=== PATIENT | female | born 1955 | race Caucasian/White ===

== ENCOUNTER 2018-10-22 16:49 | Emergency (ER) | payer BC ==
[2018-10-22] MEDS ORDERED: Sodium Chloride 0.9% 1000 ML 1,000 ML IV STA (17:09)
[2018-10-22] MEDS ORDERED: Zofran 4 MG/2 ML VIAL IV ONE (17:09)
[2018-10-22] MEDS ORDERED: ANTIVERT 25 MG PO ONE (17:09)
[2018-10-22] MEDS ORDERED: Sodium Chloride 0.9% 1000 ML 1,000 ML ONE (17:13)
[2018-10-22] MEDS ORDERED: ANTIVERT 25 MG ONE ×2 (17:13→17:28)
[2018-10-22] MEDS ORDERED: Zofran 4 MG/2 ML VIAL ONE (17:13)
[2018-10-22 17:17] LABS: BASOPHIL % 0.3 % (0.0-0.4); Basophil (Absolute #) 0.03 (0-0.4); Eosinophil % 1.3 % (0.00-5.0); Eosinophil (Absolute #) 0.15 (0-0.5); Granulocyte Absolute (ANC) 8.03 (1.4-6.9); Granulocytes % 68.4 % (36.0-66.0); Hematocrit 36.4 % (35-47); Hemoglobin 13.1 gm/dl (12.0-16.0); Lymphocyte (Absolute #) 2.88 (1.0-4.6); Lymphocytes % 24.5 % (24.0-44.0); Mean Cell Volume 94.5 fl (78-100); Mean Platelet Volume 10.2 fl (6-9.5); Monocyte (Absolute #) 0.65 (0.0-1.3); Monocytes % 5.5 % (0.0-12.0); Platelet Count 289 K/mm3 (150-450); Red Blood Count 3.85 M/mm3 (4.1-5.4); Red Cell Distribution Width 12.7 % (11.5-14.0); White Blood Count 11.7 K/mm3 (4.0-10.5)
[2018-10-22 17:22] LABS: ANION GAP 11.5 MEQ/L (5-15); BLOOD UREA NITROGEN 17 mg/dL (7-17); CHLORIDE 102 mmol/L (98-107); Calcium 9.5 mg/dL (8.4-10.2); Carbon Dioxide 28 mmol/L (22-30); Glucose 96 mg/dL (74-106); Potassium 3.8 mmol/L (3.5-5.1); SODIUM 138 mmol/L (137-145)
[2018-10-22] MEDS ORDERED: Transderm Scop 1.5MG Patch TOP ONE (17:51)
--- NOTE | 2018-10-22 18:16 | ERPHSYRPT ---
- History of Present Illness Source: patient Exam Limitations: no limitations Patient Subjective Stated Complaint: WOKE UP THIS AFTERNOON WITH DIZZINESS AND VOMITING. HAVING EPIGASTRIC PAIN Triage Nursing Assessment: TO ROOM PER W/C. SKIN W/D, COLOR NORMAL, RESP EASY. PATIENT COVERING EYES STATING SHE IS VERY DIZZY. Timing/Duration: today Severity: moderate Character of Deficits: none Deficits: no difficulties Baseline/Normal Cognition: alert oriented x 3 Current Cognition: alert oriented x 3 Baseline Gait: walks w/o assistance Associated Symptoms: nausea, vomiting, other (Vertigo) Hx Tetanus, Diphtheria Vaccination/Date Given: No Hx Influenza Vaccination/Date Given: Yes Hx Pneumococcal Vaccination/Date Given: No <PRITI MEI - Last Filed: 10/22/18 19:22> <STEPHEN UMANA - Last Filed: 10/22/18 19:38> - History of Present Illness Physician History: Pt is a 63 y/o female that presented to the ED with dizziness. Pt went for a nap this afternoon, and when she woke up, she was very dizzy and started vomiting. She was not able to keep her eyes open, secondary to the dizziness. Pt denies any injury. No LOC. No dysuria, frequency or urgency. No SOB or cough. No sick contacts. She did have some colitis on and off the last couple of weeks. (PRITI MEI) Allergies/Adverse Reactions: No Known Drug Allergies Allergy (Unverified 10/22/18 17:01) Home Medications: Candesartan/Hydrochlorothiazid [Candesartan-Hctz 16-12.5 mg Tb] 1 ea PO DAILY [History] Estrogens,Conjugated [Premarin] 0.625 mg PO DAILY 10/22/18 [History] Levothyroxine Sodium 75 mcg PO DAILY 10/22/18 [History] - Review of Systems Constitutional: No Fever, No Chills Eyes: No Symptoms Ears, Nose, & Throat: No Symptoms Respiratory: No Cough, No Dyspnea Cardiac: No Chest Pain, No Edema, No Syncope Abdominal/Gastrointestinal: No Abdominal Pain, No Nausea, No Vomiting, No Diarrhea Genitourinary Symptoms: No Dysuria Musculoskeletal: No Back Pain, No Neck Pain Neurological: Dizziness (and vertigo), Vertigo <PRITI MEI - Last Filed: 07/16/19 19:22> - Past Medical History Pertinent Past Medical History: Yes Cardiac History: Hypertension Endocrine Medical History: Hypothyroidism - Past Surgical History Past Surgical History: Yes Female Surgical History: Hysterectomy - Social History Smoking Status: Never smoker Exposure to second hand smoke: No Drug Use: none Patient Lives Alone: No - Female History Hx Now: No <PRITI EMI Filed: 10/22/18 19:22> - Bert Coma Scale Best Eye Response (Bert): (4) open spontaneously Best Verbal Response ([place]): (5) oriented Best Motor Response (Bert): (6) obeys commands Bert Total: 15 - Physical Exam General Appearance: no apparent distress, alert Eye Exam: bilateral eye: PERRL, EOMI Ears, Nose, Throat Exam: normal ENT inspection, moist mucous membranes Neck Exam: normal inspection, non-tender, supple Respiratory: normal breath sounds, lungs clear, airway intact, No respiratory distress Cardiovascular: regular rate/rhythm, No edema Gastrointestinal: soft, No tenderness, No distention Back Exam: normal inspection Extremity Exam: normal inspection, No pedal edema 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, 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: normal hearing, normal speech, PERRL Coordination/Gait: normal finger to nose, normal gait, normal cerebellar function Motor/Sensory: no motor deficit, no sensory deficit SpO2 Interpretation: normal SpO2: 99 O2 Delivery: Room Air <MIN MEINA Sharon Olivas Filed: 10/22/18 19:22> - Nursing Vital Signs Nursing Vital Signs: Initial Vital Signs Temperature 97.6 F 10/22/18 16:50 Pulse Rate 68 10/22/18 16:50 Respiratory Rate 18 10/22/18 16:50 Blood Pressure 144/80 10/22/18 16:50 O2 Sat by Pulse Oximetry 100 10/22/18 16:50 Pain Scale Pain Intensity 0 - Course EKG Interpreted by Me: RATE (66 bpm), Sinus Rhythm, NORMAL QRS, NORMAL ST-T - CT Exams Head CT Interpretation: Negative (No acute abnormalities) <GABRIELAPRITI Filed: 10/22/18 19:22> Ordered Tests: Active Orders 24 hr Category Date Time Status HEAD WITHOUT CONTRAST [CT] Stat Exams 10/22/18 17:10 Taken BMP Stat Lab 10/22/18 17:10 Completed CBC W DIFF Stat Lab 10/22/18 17:10 Completed Lactic Acid Stat Lab 10/22/18 17:34 Completed TROPONIN Q3H Lab 10/22/18 17:10 Completed TROPONIN Q3H Lab 10/22/18 20:15 Ordered TROPONIN Q3H Lab 10/22/18 23:15 Ordered TROPONIN Q3H Lab 10/23/18 02:15 Ordered TROPONIN Q3H Lab 10/23/18 05:15 Ordered UA W/RFX UR CULTURE Stat Lab 10/22/18 18:10 Completed Medication Summary Discontinued Medications Generic Name Dose Route Start Last Admin Trade Name Freq PRN Reason Stop Dose Admin Sodium Chloride 1,000 mls @ 999 mls/hr 10/22/18 17:09 10/22/18 17:27 Sodium Chloride 0.9% 1000 Ml IV 10/22/18 18:09 999 mls/hr .Q1H1M STA Administration Sodium Chloride Confirm 10/22/18 17:13 Sodium Chloride 0.9% 1000 Ml Administered 10/22/18 17:14 Dose 1,000 mls @ ud .ROUTE .STK-MED ONE Meclizine HCl 50 mg 10/22/18 17:09 10/22/18 17:27 Antivert 25 Mg PO 10/22/18 17:10 50 mg STAT ONE Administration Meclizine HCl Confirm 10/22/18 17:13 Antivert 25 Mg Administered 10/22/18 17:14 Dose 25 mg .ROUTE .STK-MED ONE Meclizine HCl Confirm 10/22/18 17:28 Antivert 25 Mg Administered 10/22/18 17:29 Dose 25 mg .ROUTE .STK-MED ONE Ondansetron HCl 4 mg 10/22/18 17:09 10/22/18 17:22 Zofran 4 Mg/2 Ml Vial IV 10/22/18 17:10 4 mg STAT ONE Administration Ondansetron HCl Confirm 10/22/18 17:13 Zofran 4 Mg/2 Ml Vial Administered 10/22/18 17:14 Dose 4 mg .ROUTE .STK-MED ONE Scopolamine HBr 1.5 mg 10/22/18 17:51 10/22/18 18:09 Transderm Scop 1.5mg Patch TOP 10/22/18 17:52 1.5 mg STAT ONE Administration Lab/Rad Data: Laboratory Result Diagrams 10/22/18 17:10 10/22/18 17:10 Laboratory Results 10/22/18 10/22/18 10/22/18 Range/Units 18:10 17:34 17:10 WBC (4.0-10.5) K/mm3 RBC (4.1-5.4) M/mm3 Hgb (12.0-16.0) gm/dl Hct (35-47) % MCV (78-100) fl MCH (26-32) pg MCHC (32-36) g/dl RDW (11.5-14.0) % Plt Count (150-450) K/mm3 MPV (6-9.5) fl Gran % (36.0-66.0) % Eos # (Auto) (0-0.5) Absolute Lymphs (auto) (1.0-4.6) Absolute Monos (auto) (0.0-1.3) Lymphocytes % (24.0-44.0) % Monocytes % (0.0-12.0) % Eosinophils % (0.00-5.0) % Basophils % (0.0-0.4) % Absolute Granulocytes (1.4-6.9) Basophils # (0-0.4) Sodium (137-145) mmol/L Potassium (3.5-5.1) mmol/L Chloride (98-107) mmol/L Carbon Dioxide (22-30) mmol/L Anion Gap (5-15) MEQ/L BUN (7-17) mg/dL Creatinine (0.52-1.04) mg/dL Estimated GFR ML/MIN Glucose (74-106) mg/dL Lactic Acid 1.8 (0.4-2.0) Calcium (8.4-10.2) mg/dL Troponin I < 0.012 (0.000-0.034) ng/mL Urine Color YELLOW (YELLOW) Urine Appearance SLIGHTLY CLOUDY (CLEAR) Urine pH 6.0 (5-6) Ur Specific [place] 1.023 (1.005-1.025) Urine Protein NEGATIVE (Negative) Urine Ketones NEGATIVE (NEGATIVE) Urine Blood NEGATIVE (0-5) Elliott/ul Urine Nitrite NEGATIVE (NEGATIVE) Urine Bilirubin NEGATIVE (NEGATIVE) Urine Urobilinogen NEGATIVE (0-1) mg/dL Ur Leukocyte Esterase NEGATIVE (NEGATIVE) Urine WBC (Auto) 0-2 (0-5) /HPF Urine RBC (Auto) 0-2 (0-2) /HPF U Epithel Cells (Auto) RARE (FEW) /HPF Urine Bacteria (Auto) NONE SEEN (NEGATIVE) /HPF Other Casts (Auto) NEGATIVE (NEGATIVE) /LPF Urine Mucus (Auto) SLIGHT (NEGATIVE) /HPF Urine Culture Reflexed NO (NO) Urine Glucose NEGATIVE (NEGATIVE) mg/dL 10/22/18 10/22/18 Range/Units 17:10 17:10 WBC 11.7 H (4.0-10.5) K/mm3 RBC 3.85 L (4.1-5.4) M/mm3 Hgb 13.1 (12.0-16.0) gm/dl Hct 36.4 (35-47) % MCV 94.5 (78-100) fl MCH 34.0 H (26-32) pg MCHC 36.0 (32-36) g/dl RDW 12.7 (11.5-14.0) % Plt Count 289 (150-450) K/mm3 MPV 10.2 H (6-9.5) fl Gran % 68.4 H (36.0-66.0) % Eos # (Auto) 0.15 (0-0.5) Absolute Lymphs (auto) 2.88 (1.0-4.6) Absolute Monos (auto) 0.65 (0.0-1.3) Lymphocytes % 24.5 (24.0-44.0) % Monocytes % 5.5 (0.0-12.0) % Eosinophils % 1.3 (0.00-5.0) % Basophils % 0.3 (0.0-0.4) % Absolute Granulocytes 8.03 H (1.4-6.9) Basophils # 0.03 (0-0.4) Sodium 138 (137-145) mmol/L Potassium 3.8 (3.5-5.1) mmol/L Chloride 102 (98-107) mmol/L Carbon Dioxide 28 (22-30) mmol/L Anion Gap 11.5 (5-15) MEQ/L BUN 17 (7-17) mg/dL Creatinine 0.70 (0.52-1.04) mg/dL Estimated GFR > 60.0 ML/MIN Glucose 96 (74-106) mg/dL Lactic Acid (0.4-2.0) Calcium 9.5 (8.4-10.2) mg/dL Troponin I (0.000-0.034) ng/mL Urine Color (YELLOW) Urine Appearance (CLEAR) Urine pH (5-6) Ur Specific [place] (1.005-1.025) Urine Protein (Negative) Urine Ketones (NEGATIVE) Urine Blood (0-5) Elliott/ul Urine Nitrite (NEGATIVE) Urine Bilirubin (NEGATIVE) Urine Urobilinogen (0-1) mg/dL Ur Leukocyte Esterase (NEGATIVE) Urine WBC (Auto) (0-5) /HPF Urine RBC (Auto) (0-2) /HPF U Epithel Cells (Auto) (FEW) /HPF Urine Bacteria (Auto) (NEGATIVE) /HPF Other Casts (Auto) (NEGATIVE) /LPF Urine Mucus (Auto) (NEGATIVE) /HPF Urine Culture Reflexed (NO) Urine Glucose (NEGATIVE) mg/dL - Progress Progress: improved Discussed with .: Kali Hernandez Will see patient in: office Counseled pt/family regarding: need for follow-up <PRITI MEI - Last Filed: 10/22/18 19:22> - Progress Progress Note: 10/22/18 18:17 Pt was seen and examined. She still has some nausea, and is keeping her eyes close. EKG is normal, and CT of head and labs are normal. UA is pending. Zofran, Scopolamine patch and IVF were ordered. Meclizine 50mg PO once was ordered. 10/22/18 19:22 Patient initialy seen by Dr Mei, patient with complaint of vertigo since 2 :[address] pm[address] woke this way after a nap Patient sates now feeling better patient with normal neuological exam. eyes perrla, eomi funormal ekfg alert, oriented x 3 , speech normal, normal finger to nose, no pronator drift no facial droop, legal job titles equal 5/5, gcs= 15. full rom all extremities, sensation intact all extremities, head ct wnl heart rrr without murmer, cbc essentially normal chemistry normal ekg nsr [address] or t wave changes, normal ekg, head ct no acute intracranial changes. orthostatic vital signs wnl. Patient ambulating well. impression 1 benigh positional vertigo2. dizzyness, plan asa 162 mg orally, plenty of fluids, home on meclizine, follow up with Dr Bobby. (PRITI MEI) - Departure Departure Disposition: Home <PRITI MEI - Last Filed: 10/22/18 19:22> - Departure Departure Disposition: Home Critical Care Time: No <STEPHEN UMANA - Last Filed: 10/22/18 19:38> - Departure Clinical Impression: Vertigo, Dizziness Condition: Fair Referrals: KENZIE HERNANDEZ [Primary Care Provider] - Additional Instructions: Return home, plenty of fluids. meclizine as prescribed. Follow up with Dr Bobby. Return for acute distress or for any problem. Prescriptions: Meclizine HCl 25 mg [Antivert 25 mg] 25 mg PO TID PRN #20 tablet
[2018-10-22 18:22] LABS: Appearance SLIGHTLY CLOUDY (CLEAR); Bilirubin NEGATIVE (NEGATIVE); Blood NEGATIVE Ery/ul (0-5); Epithelial Cells RARE /HPF (FEW); Glucose NEGATIVE (NEGATIVE); Ketones NEGATIVE (NEGATIVE); Leukocyte Esterase NEGATIVE (NEGATIVE); Mucus SLIGHT /HPF (NEGATIVE); Nitrite NEGATIVE (NEGATIVE); Protein,Urine Dip NEGATIVE (Negative); RBC 0-2 /HPF (0-2); Specific Gravity 1.023 (1.005-1.025); Urobilinogen NEGATIVE mg/dL (0-1); WBC 0-2 /HPF (0-5)
[2018-10-22 18:23] LABS: Bacteria NONE SEEN /HPF (NEGATIVE)
[2018-10-22] MEDS ORDERED: BABY ASPIRIN 81 MG CHEW ONE (19:33)
[2018-10-22] MEDS ORDERED: BABY ASPIRIN 81 MG CHEW PO ONE (19:41)
[2018-10-22 19:49] VITALS: BP 119/72; PULSE 88; O2SAT 97
--- NOTE | 2018-10-23 08:38 | XRAY ---
Indication: Nausea and dizziness. Multiple contiguous axial images obtained through the head without contrast. Comparison: July 04, 2016. Again normal appearing brain parenchyma, ventricles, and bony calvarium. Visualized paranasal sinuses and mastoid air cells are clear. Impression: Normal CT head without contrast exam. CT DI 70.62
== END 2018-10-22 19:52 | disposition home or self-care (01) ==
LOC: ED 16:49
DX: H81.10 Benign paroxysmal vertigo, unspecified ear (principal); R42 Dizziness and giddiness; E03.9 Hypothyroidism, unspecified; Z79.899 Other long term (current) drug therapy
CPT/HCPCS: 36000; 36415; 70450; 80048; 81001; 83605; 84484; 85025; 96360; 96374; 99284; J2405; A9270-GY

== ENCOUNTER 2019-01-13 13:53 | Emergency (ER) | payer BC ==
--- NOTE | 2019-01-13 13:55 | ERPHSYRPT ---
- History of Present Illness Time Seen by Provider: 01/13/19 13:55 Source: patient Exam Limitations: no limitations Physician History: 63 y/o white female with 2 month h/o dizziness and worsening left hearing loss. pt has seen an ENT and a neurologist for this. 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 pt does not know the results. in the last several days pt has noticed a variety of sx including cp that has resolved, nausea without vomiting, mild dizziness, and weakness. pt was diagnosed with superficial siderosis(recurrent subarachnoid hemorrhages) Timing/Duration: day(s) (several days), intermittent Severity: mild Character of Deficits: other (loss of balance more than vertigo ) Deficits: off balance Baseline/Normal Cognition: alert oriented x 3 Current Cognition: alert oriented x 3 Baseline Gait: walks w/o assistance Associated Symptoms: nausea, weakness, chest pain (last week), No vomiting Allergies/Adverse Reactions: No Known Drug Allergies Allergy (Unverified 10/22/18 17:01) Home Medications: Candesartan/Hydrochlorothiazid [Candesartan-Hctz 16-12.5 mg Tb] 1 ea PO DAILY [History] Estrogens,Conjugated [Premarin] 0.625 mg PO DAILY 10/22/18 [History] Levothyroxine Sodium 75 mcg PO DAILY 10/22/18 [History] Hx Tetanus, Diphtheria Vaccination/Date Given: No Hx Influenza Vaccination/Date Given: Yes Hx Pneumococcal Vaccination/Date Given: No - Review of Systems Constitutional: Weakness Eyes: No Symptoms Ears, Nose, & Throat: No Symptoms Respiratory: No Symptoms Cardiac: Chest Pain (last week) Abdominal/Gastrointestinal: Nausea Genitourinary Symptoms: No Symptoms Musculoskeletal: No Symptoms Skin: No Symptoms Neurological: Dizziness Psychological: No Symptoms Endocrine: No Symptoms Hematologic/Lymphatic: No Symptoms Immunological/Allergic: No Symptoms All Other Systems: Reviewed and Negative - Past Medical History Pertinent Past Medical History: Yes Neurological History: No Pertinent History ENT History: No Pertinent History Cardiac History: Hypertension Respiratory History: No Pertinent History Endocrine Medical History: Hypothyroidism Musculoskeletal History: No Pertinent History GI Medical History: No Pertinent History History: No Pertinent History Psycho-Social History: No Pertinent History Female Reproductive Disorders: No Pertinent History - Past Surgical History Past Surgical History: Yes Neuro Surgical History: No Pertinent History Cardiac: No Pertinent History Respiratory: No Pertinent History Gastrointestinal: No Pertinent History Genitourinary: No Pertinent History Musculoskeletal: No Pertinent History Female Surgical History: Hysterectomy - Social History Smoking Status: Never smoker Exposure to second hand smoke: No Drug Use: none Patient Lives Alone: No - Nursing Vital Signs Nursing Vital Signs: Initial Vital Signs Temperature 98.3 F 01/13/19 14:14 Pulse Rate 72 01/13/19 14:14 Respiratory Rate 18 01/13/19 14:14 Blood Pressure 131/71 01/13/19 14:14 O2 Sat by Pulse Oximetry 100 01/13/19 14:14 Pain Scale Pain Intensity 0 - [place] Coma Scale Best Eye Response ([place]): (4) open spontaneously Best Verbal Response (Bert): (5) oriented Best Motor Response (Bert): (6) obeys commands Bert Total: 15 - Physical Exam General Appearance: no apparent distress, alert, anxiety Eye Exam: bilateral eye: normal inspection, PERRL, EOMI Ears, Nose, Throat Exam: normal ENT inspection, TMs normal, pharynx normal, moist mucous membranes Neck Exam: normal inspection, non-tender, supple, full range of motion Respiratory: normal breath sounds, lungs clear, airway intact, No chest tenderness, No respiratory distress Cardiovascular: regular rate/rhythm, normal heart sounds, normal peripheral pulses Gastrointestinal: soft, normal bowel sounds, No tenderness Pelvic Exam: not done Rectal Exam: not done Back Exam: normal inspection, normal range of motion, No CVA tenderness, No vertebral tenderness Extremity Exam: normal inspection, normal range of motion, pelvis stable 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, oriented x 3, 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 Exam: normal speech, PERRL, hearing deficit (L) (chronic and worsening) Coordination/Gait: normal finger to nose, normal gait, normal cerebellar function Motor/Sensory: no motor deficit, no sensory deficit, no pronator drift Skin Exam: normal color, warm, dry SpO2 Interpretation: normal O2 Delivery: Room Air - Course Nursing assessment & vital signs reviewed: Yes EKG Interpreted by Me: RATE (68), Sinus Rhythm, NORMAL AXIS, NORMAL INTERVALS, NORMAL QRS, Other (comparison ekg 10/22/18 no changes) Ordered Tests: Active Orders 24 hr Category Date Time Status EKG-ER Only STAT Care 01/13/19 14:59 Active IV Insertion STAT Care 01/13/19 14:59 Active CBC W DIFF Stat Lab 01/13/19 15:10 Completed CMP Stat Lab 01/13/19 15:10 Completed TROPONIN Q3H Lab 01/13/19 15:10 Completed TROPONIN Q3H Lab 01/13/19 18:00 Ordered TROPONIN Q3H Lab 01/13/19 21:00 Ordered TROPONIN Q3H Lab 01/14/19 00:00 Ordered TROPONIN Q3H Lab 01/14/19 03:00 Ordered UA W/RFX UR CULTURE Stat Lab 01/13/19 15:00 Completed Medication Summary Discontinued Medications Generic Name Dose Route Start Last Admin Trade Name Frejenny PRN Reason Stop Dose Admin Sodium Chloride 1,000 mls @ 999 mls/hr 01/13/19 14:59 01/13/19 16:30 Sodium Chloride 0.9% 1000 Ml IV 01/13/19 15:59 Infused .Q1H1M STA Infusion Sodium Chloride Confirm 01/13/19 15:18 Sodium Chloride 0.9% 1000 Ml Administered 01/13/19 15:19 Dose 1,000 mls @ ud .ROUTE .STK-MED ONE Promethazine HCl 12.5 mg 01/13/19 14:59 01/13/19 15:19 Phenergan 25 Mg Inj IM 01/13/19 15:00 12.5 mg STAT ONE Administration Promethazine HCl Confirm 01/13/19 15:18 Phenergan 25 Mg Inj Administered 01/13/19 15:19 Dose 25 mg .ROUTE .STK-MED ONE Lab/Rad Data: Laboratory Result Diagrams 01/13/19 15:10 01/13/19 15:10 Laboratory Results 01/13/19 01/13/19 01/13/19 Range/Units 15:10 15:10 15:10 WBC 12.3 H (4.0-10.5) K/mm3 RBC 4.02 L (4.1-5.4) M/mm3 Hgb 13.0 (12.0-16.0) gm/dl Hct 38.0 (35-47) % MCV 94.5 (78-100) fl MCH 32.3 H (26-32) pg MCHC 34.2 (32-36) g/dl RDW 12.4 (11.5-14.0) % Plt Count 314 (150-450) K/mm3 MPV 9.8 H (6-9.5) fl Gran % 77.4 H (36.0-66.0) % Eos # (Auto) 0.06 (0-0.5) Absolute Lymphs (auto) 2.12 (1.0-4.6) Absolute Monos (auto) 0.58 (0.0-1.3) Lymphocytes % 17.2 L (24.0-44.0) % Monocytes % 4.7 (0.0-12.0) % Eosinophils % 0.5 (0.00-5.0) % Basophils % 0.2 (0.0-0.4) % Absolute Granulocytes 9.53 H (1.4-6.9) Basophils # 0.03 (0-0.4) Sodium 140 (137-145) mmol/L Potassium 3.5 (3.5-5.1) mmol/L Chloride 102 (98-107) mmol/L Carbon Dioxide 29 (22-30) mmol/L Anion Gap 13.2 (5-15) MEQ/L BUN 17 (7-17) mg/dL Creatinine 0.78 (0.52-1.04) mg/dL Estimated GFR > 60.0 ML/MIN Glucose 93 (74-106) mg/dL Calcium 9.6 (8.4-10.2) mg/dL Total Bilirubin 0.20 (0.2-1.3) mg/dL AST 26 (14-36) U/L ALT 20 (0-35) U/L Alkaline Phosphatase 65 (38-126) U/L Troponin I < 0.012 (0.000-0.034) ng/mL Serum Total Protein 7.8 (6.3-8.2) g/dL Albumin 4.1 (3.5-5.0) g/dL Urine Color (YELLOW) Urine Appearance (CLEAR) Urine pH (5-6) Ur Specific [place] (1.005-1.025) Urine Protein (Negative) Urine Ketones (NEGATIVE) Urine Blood (0-5) Elliott/ul Urine Nitrite (NEGATIVE) Urine Bilirubin (NEGATIVE) Urine Urobilinogen (0-1) mg/dL Ur Leukocyte Esterase (NEGATIVE) Urine WBC (Auto) (0-5) /HPF Urine RBC (Auto) (0-2) /HPF U Epithel Cells (Auto) (FEW) /HPF Urine Bacteria (Auto) (NEGATIVE) /HPF Urine Mucus (Auto) (NEGATIVE) /HPF Urine Culture Reflexed (NO) Urine Glucose (NEGATIVE) mg/dL 01/13/19 Range/Units 15:00 WBC (4.0-10.5) K/mm3 RBC (4.1-5.4) M/mm3 Hgb (12.0-16.0) gm/dl Hct (35-47) % MCV (78-100) fl MCH (26-32) pg MCHC (32-36) g/dl RDW (11.5-14.0) % Plt Count (150-450) K/mm3 MPV (6-9.5) fl Gran % (36.0-66.0) % Eos # (Auto) (0-0.5) Absolute Lymphs (auto) (1.0-4.6) Absolute Monos (auto) (0.0-1.3) Lymphocytes % (24.0-44.0) % Monocytes % (0.0-12.0) % Eosinophils % (0.00-5.0) % Basophils % (0.0-0.4) % Absolute Granulocytes (1.4-6.9) Basophils # (0-0.4) Sodium (137-145) mmol/L Potassium (3.5-5.1) mmol/L Chloride (98-107) mmol/L Carbon Dioxide (22-30) mmol/L Anion Gap (5-15) MEQ/L BUN (7-17) mg/dL Creatinine (0.52-1.04) mg/dL Estimated GFR ML/MIN Glucose (74-106) mg/dL Calcium (8.4-10.2) mg/dL Total Bilirubin (0.2-1.3) mg/dL AST (14-36) U/L ALT (0-35) U/L Alkaline Phosphatase (38-126) U/L Troponin I (0.000-0.034) ng/mL Serum Total Protein (6.3-8.2) g/dL Albumin (3.5-5.0) g/dL Urine Color YELLOW (YELLOW) Urine Appearance CLEAR (CLEAR) Urine pH 5.0 (5-6) Ur Specific [place] 1.017 (1.005-1.025) Urine Protein NEGATIVE (Negative) Urine Ketones NEGATIVE (NEGATIVE) Urine Blood SMALL (0-5) Elliott/ul Urine Nitrite NEGATIVE (NEGATIVE) Urine Bilirubin NEGATIVE (NEGATIVE) Urine Urobilinogen NEGATIVE (0-1) mg/dL Ur Leukocyte Esterase NEGATIVE (NEGATIVE) Urine WBC (Auto) NONE (0-5) /HPF Urine RBC (Auto) NONE (0-2) /HPF U Epithel Cells (Auto) RARE (FEW) /HPF Urine Bacteria (Auto) NONE (NEGATIVE) /HPF Urine Mucus (Auto) SLIGHT (NEGATIVE) /HPF Urine Culture Reflexed NO (NO) Urine Glucose NEGATIVE (NEGATIVE) mg/dL - Progress Progress: improved Progress Note: 01/13/19 17:16 spoke with pt and spouse. we opted not to perform a ct head. pt underwent two brain mris 3 days ago. they are awaiting results. Counseled pt/family regarding: lab results, diagnosis, need for follow-up - Departure Departure Disposition: Home Clinical Impression: Ataxia, Dizziness Condition: Stable Critical Care Time: No Referrals: NEELAM CAMARILLO MD [Primary Care Provider] - Additional Instructions: call your neurologist tomorrow to obtain MRI results and for further instructions.
[2019-01-13] MEDS ORDERED: Phenergan 25 MG INJ ONE (15:18)
[2019-01-13] MEDS ORDERED: Sodium Chloride 0.9% 1000 ML 1,000 ML ONE (15:18)
[2019-01-13] MEDS: Sodium Chloride 0.9% 1000 ML 1,000 ML IV STA (15:19)
[2019-01-13] MEDS: Phenergan 25 MG INJ IM ONE (15:19)
[2019-01-13 15:22] LABS: Absolute Neutrophil Ct (ANC) 9.53 (1.4-6.9); BASOPHIL % 0.2 % (0.0-0.4); Basophil (Absolute #) 0.03 (0-0.4); Eosinophil % 0.5 % (0.00-5.0); Eosinophil (Absolute #) 0.06 (0-0.5); Lymphocyte (Absolute #) 2.12 (1.0-4.6); Lymphocytes % 17.2 % (24.0-44.0); Mean Cell Volume 94.5 fl (78-100); Mean Corpuscular Hemoglobin 32.3 pg (26-32); Mean Corpuscular Hgb Concent. 34.2 g/dl (32-36); Mean Platelet Volume 9.8 fl (6-9.5); Monocyte (Absolute #) 0.58 (0.0-1.3); Monocytes % 4.7 % (0.0-12.0); Neutrophil % 77.4 % (36.0-66.0); Platelet Count 314 K/mm3 (150-450); Red Blood Count 4.02 M/mm3 (4.1-5.4); Red Cell Distribution Width 12.4 % (11.5-14.0); White Blood Count 12.3 K/mm3 (4.0-10.5)
[2019-01-13 15:39] LABS: ALBUMIN 4.1 g/dL (3.5-5.0); ALKALINE PHOSPHATASE 65 U/L (38-126); ANION GAP 13.2 MEQ/L (5-15); BLOOD UREA NITROGEN 17 mg/dL (7-17); CHLORIDE 102 mmol/L (98-107); Calcium 9.6 mg/dL (8.4-10.2); Carbon Dioxide 29 mmol/L (22-30); Creatinine 1 0.78 mg/dL (0.52-1.04); Glucose 93 mg/dL (74-106); Potassium 3.5 mmol/L (3.5-5.1); SGOT/AST 26 U/L (14-36); SGPT/ALT 20 U/L (0-35); SODIUM 140 mmol/L (137-145); Total Protein 7.8 g/dL (6.3-8.2)
[2019-01-13 16:38] LABS: Appearance CLEAR (CLEAR); Bilirubin NEGATIVE (NEGATIVE); Blood SMALL Ery/ul (0-5); Epithelial Cells RARE /HPF (FEW); Glucose NEGATIVE (NEGATIVE); Ketones NEGATIVE (NEGATIVE); Leukocyte Esterase NEGATIVE (NEGATIVE); Mucus SLIGHT /HPF (NEGATIVE); Nitrite NEGATIVE (NEGATIVE); Protein,Urine Dip NEGATIVE (Negative); Specific Gravity 1.017 (1.005-1.025); Urobilinogen NEGATIVE mg/dL (0-1)
[2019-01-13 17:21] VITALS: BP 109/66
[2019-01-13 17:32] VITALS: PULSE 77; O2SAT 98
== END 2019-01-13 17:31 | disposition home or self-care (01) ==
LOC: ED 13:53
DX: R27.0 Ataxia, unspecified (principal); R42 Dizziness and giddiness
CPT/HCPCS: 36000; 36415; 80053; 81001; 84484; 85025; 93005; 96360; 96372; 99284; J2550

== ENCOUNTER 2020-04-19 10:04 | Observation (INO) | payer BC ==
--- NOTE | 2020-04-19 10:24 | ERPHSYRPT ---
- History of Present Illness Time Seen by Provider: 04/19/20 10:10 Source: patient Exam Limitations: no limitations Patient Subjective Stated Complaint: Pt states "Last weekend I started to have chest pain and shortness of breath and i have mitral valve prolaps and thought I was having a flair up so I held off coming to the ed, but it is just getting worse." Triage Nursing Assessment: Pt presented alert and oriented X 3, skin pwd. PT ambulates with an upright steady gait, able to speak in clear full sentences. Pt in no apparent respiratory distress. Physician History: Patient is a 64-year-old female presents to our ED as a referral from her primary care doctor for evaluation of chest pain and shortness of breath that has been progressive over the past week. Patient states she has a history of mitral valve prolapse. Chest pain described as an ache that is localized. No radiation. No associated nausea vomiting or diaphoresis. No fever no trauma. Patient denies Covid exposure. Symptoms are moderate in intensity. No specific worsening or improving factors. Patient voices no other complaints concerns at this time. Timing/Duration: week(s) Severity: moderate (A week ago) Modifying Factors: Improves With: nothing Associated Symptoms: denies symptoms Allergies/Adverse Reactions: No Known Drug Allergies Allergy (Verified 04/19/20 10:12) Home Medications: Candesartan/Hydrochlorothiazid [Candesartan-Hctz 16-12.5 mg Tb] 1 ea PO DAILY 10/22/18 [History] Estrogens,Conjugated [Premarin] 0.625 mg PO DAILY 10/22/18 [History] Levothyroxine Sodium 75 mcg PO DAILY 10/22/18 [History] Hx Tetanus, Diphtheria Vaccination/Date Given: No Hx Influenza Vaccination/Date Given: No Hx Pneumococcal Vaccination/Date Given: No Immunizations Up to Date: Yes Travel Risk - International Travel Have you traveled outside of the country in past 3 weeks: No - Coronavirus Screening Are you exhibiting any of the following symptoms?: No Close contact with a COVID-19 positive Pt in past 14-21 Days: No - Review of Systems Constitutional: No Symptoms, No Fever, No Chills Eyes: No Symptoms Ears, Nose, & Throat: No Symptoms Respiratory: No Symptoms, No Cough, No Dyspnea Cardiac: No Symptoms, No Chest Pain, No Edema, No Syncope Abdominal/Gastrointestinal: No Symptoms, No Abdominal Pain, No Nausea, No Vomiting, No Diarrhea Genitourinary Symptoms: No Symptoms, No Dysuria Musculoskeletal: No Symptoms, No Back Pain, No Neck Pain Skin: No Symptoms, No Rash Neurological: No Symptoms, No Dizziness, No Focal Weakness, No Sensory Changes Psychological: No Symptoms Endocrine: No Symptoms Hematologic/Lymphatic: No Symptoms Immunological/Allergic: No Symptoms All Other Systems: Reviewed and Negative - Past Medical History Pertinent Past Medical History: Yes Neurological History: No Pertinent History ENT History: No Pertinent History Cardiac History: Hypertension Respiratory History: No Pertinent History Endocrine Medical History: Hypothyroidism Musculoskeletal History: No Pertinent History GI Medical History: No Pertinent History History: No Pertinent History Psycho-Social History: No Pertinent History Female Reproductive Disorders: No Pertinent History Other Medical History: superficial siderosis - Past Surgical History Past Surgical History: Yes Neuro Surgical History: No Pertinent History Cardiac: No Pertinent History Respiratory: No Pertinent History Gastrointestinal: No Pertinent History Genitourinary: No Pertinent History Musculoskeletal: No Pertinent History Female Surgical History: Hysterectomy - Social History Smoking Status: Never smoker Exposure to second hand smoke: No Drug Use: none Patient Lives Alone: No - Nursing Vital Signs Nursing Vital Signs: Initial Vital Signs Temperature 98.2 F 04/19/20 10:04 Pulse Rate 80 04/19/20 10:04 Respiratory Rate 22 04/19/20 10:04 Blood Pressure 138/70 04/19/20 10:04 O2 Sat by Pulse Oximetry 98 04/19/20 10:04 Pain Scale Pain Intensity 1 - Physical Exam General Appearance: no apparent distress, alert Eye Exam: PERRL/EOMI, eyes nml inspection Ears, Nose, Throat Exam: normal ENT inspection, TMs normal, pharynx normal, moist mucous membranes Neck Exam: normal inspection, non-tender, supple, full range of motion Respiratory Exam: normal breath sounds, lungs clear, No respiratory distress Cardiovascular Exam: regular rate/rhythm, normal heart sounds, normal peripheral pulses Gastrointestinal/Abdomen Exam: soft, normal bowel sounds, No tenderness, No mass Back Exam: normal inspection, normal range of motion, No CVA tenderness, No vertebral tenderness Extremity Exam: normal inspection, normal range of motion, pelvis stable Neurologic Exam: alert, oriented x 3, cooperative, normal mood/affect, nml cerebellar function, nml station & gait, sensation nml, No motor deficits Skin Exam: normal color, warm, dry, No rash Lymphatic Exam: No adenopathy SpO2 Interpretation: normal SpO2: 98 O2 Delivery: Room Air - Course Nursing assessment & vital signs reviewed: Yes EKG Interpreted by Me: RATE (75), Sinus Rhythm, NORMAL AXIS, NORMAL INTERVALS - Radiology Exams Chest X-ray Interpretation: Interpreted by me, Teleradiologist Report (No acute findings. Normal bony thorax.) Ordered Tests: Active Orders 24 hr Category Date Time Status Collection Systems Foreman STAT Care 04/19/20 10:09 Active EKG-ER Only STAT Care 04/19/20 10:08 Active IV Insertion STAT Care 04/19/20 10:08 Active Pulse Oximetry (ED) STAT Care 04/19/20 10:08 Active CHEST 1 VIEW (PORTABLE) Stat Exams 04/19/20 10:09 Completed CBC W DIFF Stat Lab 04/19/20 10:15 Completed CMP Stat Lab 04/19/20 10:15 Completed MAGNESIUM Stat Lab 04/19/20 10:15 Completed NT PRO BNP Stat Lab 04/19/20 10:15 Completed TROPONIN Q3H Lab 04/19/20 10:15 Completed TROPONIN Q3H Lab 04/19/20 13:15 Ordered TROPONIN Q3H Lab 04/19/20 16:15 Ordered TROPONIN Q3H Lab 04/19/20 19:15 Ordered TROPONIN Q3H Lab 04/19/20 22:15 Ordered UA W/RFX UR CULTURE Stat Lab 04/19/20 11:27 Completed Transfer Order Routine Transfer 04/19/20 Ordered Medication Summary Discontinued Medications Generic Name Dose Route Start Last Admin Trade Name Freq PRN Reason Stop Dose Admin Aspirin 324 mg 04/19/20 12:52 04/19/20 12:58 Baby Aspirin 81 Mg Chew PO 04/19/20 12:53 324 mg STAT ONE Administration Aspirin Confirm 04/19/20 12:56 Baby Aspirin 81 Mg Chew Administered 04/19/20 12:57 Dose 324 mg .ROUTE .STK-MED ONE Nitroglycerin 1 gm 04/19/20 12:53 04/19/20 12:58 Nitro-Bid 2% Ud Packets TOP 04/19/20 12:54 1 gm STAT ONE Administration Nitroglycerin Confirm 04/19/20 12:56 Nitro-Bid 2% Ud Packets Administered 04/19/20 12:57 Dose 1 gm .ROUTE .STK-MED ONE Lab/Rad Data: Laboratory Result Diagrams 04/19/20 10:15 04/19/20 10:15 Laboratory Results 04/19/20 04/19/20 04/19/20 Range/Units 11:27 10:15 10:15 WBC (4.0-10.5) K/mm3 RBC (4.1-5.4) M/mm3 Hgb (12.0-16.0) gm/dl Hct (35-47) % MCV (78-100) fl MCH (26-32) pg MCHC (32-36) g/dl RDW (11.5-14.0) % Plt Count (150-450) K/mm3 MPV (7.5-11.0) fl Gran % (36.0-66.0) % Eos # (Auto) (0-0.5) Absolute Lymphs (auto) (1.0-4.6) Absolute Monos (auto) (0.0-1.3) Lymphocytes % (24.0-44.0) % Monocytes % (0.0-12.0) % Eosinophils % (0.00-5.0) % Basophils % (0.0-0.4) % Absolute Granulocytes (1.4-6.9) Basophils # (0-0.4) Sodium 135 L (137-145) mmol/L Potassium 3.8 (3.5-5.1) mmol/L Chloride 99 (98-107) mmol/L Carbon Dioxide 30 (22-30) mmol/L Anion Gap 9.7 (5-15) MEQ/L BUN 23 H (7-17) mg/dL Creatinine 0.81 (0.52-1.04) mg/dL Estimated GFR > 60.0 ML/MIN Glucose 96 (74-106) mg/dL Calcium 9.7 (8.4-10.2) mg/dL Magnesium 1.8 (1.6-2.3) mg/dL Total Bilirubin 0.40 (0.2-1.3) mg/dL AST 24 (14-36) U/L ALT 17 (0-35) U/L Alkaline Phosphatase 67 (38-126) U/L Troponin I < 0.012 (0.000-0.034) ng/mL NT-Pro-B Natriuret Pep 50.1 (0-900) pg/mL Serum Total Protein 7.7 (6.3-8.2) g/dL Albumin 4.1 (3.5-5.0) g/dL Urine Color YELLOW (YELLOW) Urine Appearance SLIGHTLY CLOUDY (CLEAR) Urine pH 6.0 (5-6) Ur Specific [place] 1.021 (1.005-1.025) Urine Protein NEGATIVE (Negative) Urine Ketones NEGATIVE (NEGATIVE) Urine Blood NEGATIVE (0-5) Elliott/ul Urine Nitrite NEGATIVE (NEGATIVE) Urine Bilirubin NEGATIVE (NEGATIVE) Urine Urobilinogen NEGATIVE (0-1) mg/dL Ur Leukocyte Esterase TRACE (NEGATIVE) Urine WBC (Auto) NONE (0-5) /HPF Urine RBC (Auto) NONE (0-2) /HPF U Epithel Cells (Auto) RARE (FEW) /HPF Urine Bacteria (Auto) NONE (NEGATIVE) /HPF Urine Mucus (Auto) SLIGHT (NEGATIVE) /HPF Urine Culture Reflexed NO (NO) Urine Glucose NEGATIVE (NEGATIVE) mg/dL 04/19/20 Range/Units 10:15 WBC 11.2 H (4.0-10.5) K/mm3 RBC 4.08 L (4.1-5.4) M/mm3 Hgb 13.1 (12.0-16.0) gm/dl Hct 38.8 (35-47) % MCV 95.1 (78-100) fl MCH 32.1 H (26-32) pg MCHC 33.8 (32-36) g/dl RDW 12.1 (11.5-14.0) % Plt Count 328 (150-450) K/mm3 MPV 9.7 (7.5-11.0) fl Gran % 69.4 H (36.0-66.0) % Eos # (Auto) 0.07 (0-0.5) Absolute Lymphs (auto) 2.91 (1.0-4.6) Absolute Monos (auto) 0.43 (0.0-1.3) Lymphocytes % 25.9 (24.0-44.0) % Monocytes % 3.8 (0.0-12.0) % Eosinophils % 0.6 (0.00-5.0) % Basophils % 0.3 (0.0-0.4) % Absolute Granulocytes 7.79 H (1.4-6.9) Basophils # 0.03 (0-0.4) Sodium (137-145) mmol/L Potassium (3.5-5.1) mmol/L Chloride (98-107) mmol/L Carbon Dioxide (22-30) mmol/L Anion Gap (5-15) MEQ/L BUN (7-17) mg/dL Creatinine (0.52-1.04) mg/dL Estimated GFR ML/MIN Glucose (74-106) mg/dL Calcium (8.4-10.2) mg/dL Magnesium (1.6-2.3) mg/dL Total Bilirubin (0.2-1.3) mg/dL AST (14-36) U/L ALT (0-35) U/L Alkaline Phosphatase (38-126) U/L Troponin I (0.000-0.034) ng/mL NT-Pro-B Natriuret Pep (0-900) pg/mL Serum Total Protein (6.3-8.2) g/dL Albumin (3.5-5.0) g/dL Urine Color (YELLOW) Urine Appearance (CLEAR) Urine pH (5-6) Ur Specific [place] (1.005-1.025) Urine Protein (Negative) Urine Ketones (NEGATIVE) Urine Blood (0-5) Elliott/ul Urine Nitrite (NEGATIVE) Urine Bilirubin (NEGATIVE) Urine Urobilinogen (0-1) mg/dL Ur Leukocyte Esterase (NEGATIVE) Urine WBC (Auto) (0-5) /HPF Urine RBC (Auto) (0-2) /HPF U Epithel Cells (Auto) (FEW) /HPF Urine Bacteria (Auto) (NEGATIVE) /HPF Urine Mucus (Auto) (NEGATIVE) /HPF Urine Culture Reflexed (NO) Urine Glucose (NEGATIVE) mg/dL - Progress Progress: improved Progress Note: Patient reassessed. No active chest pain at rest. Preliminary work-up negative. Case discussed with her primary care doctor. We will admit for cardi ac rule out. Aspirin administered. Nitro administered. Patient's last stress test was 5 or 6 years ago. Patient concerned with her chest pain as her mother recently had 2 heart attacks. Plan of care discussed with patient. She agrees to admission to [facility] for further evaluation and treatment. Patient denies Covid exposure. No Covid symptomology. We discussed Covid testing with administration. They feel that Covid testing is not necessary at this time and I do agree with this recommendation. 04/19/20 12:59 04/19/20 13:00 Discussed with : Rosa Will see patient in: hospital (observation) Counseled pt/family regarding: lab results, diagnosis - Departure Departure Disposition: Observation Clinical Impression: ACS (acute coronary syndrome) Condition: Stable Critical Care Time: No Referrals: NEELAM CAMARILLO MD [Primary Care Provider] -
[2020-04-19 10:29] LABS: Absolute Neutrophil Ct (ANC) 7.79 (1.4-6.9); BASOPHIL % 0.3 % (0.0-0.4); Basophil (Absolute #) 0.03 (0-0.4); Eosinophil % 0.6 % (0.00-5.0); Eosinophil (Absolute #) 0.07 (0-0.5); Hematocrit 38.8 % (35-47); Hemoglobin 13.1 gm/dl (12.0-16.0); Lymphocyte (Absolute #) 2.91 (1.0-4.6); Lymphocytes % 25.9 % (24.0-44.0); Mean Cell Volume 95.1 fl (78-100); Mean Corpuscular Hemoglobin 32.1 pg (26-32); Mean Corpuscular Hgb Concent. 33.8 g/dl (32-36); Mean Platelet Volume 9.7 fl (7.5-11.0); Monocyte (Absolute #) 0.43 (0.0-1.3); Monocytes % 3.8 % (0.0-12.0); Neutrophil % 69.4 % (36.0-66.0); Platelet Count 328 K/mm3 (150-450); Red Blood Count 4.08 M/mm3 (4.1-5.4); Red Cell Distribution Width 12.1 % (11.5-14.0); White Blood Count 11.2 K/mm3 (4.0-10.5)
--- NOTE | 2020-04-19 10:42 | XRAY ---
Indication: Chest pain. Comparison: April 26, 2010. Portable chest remains hyperinflated and clear. Heart not enlarged. Bony thorax intact again with double curvature scoliosis. No new/acute findings.
[2020-04-19 10:46] LABS: ALBUMIN 4.1 g/dL (3.5-5.0); ALKALINE PHOSPHATASE 67 U/L (38-126); ANION GAP 9.7 MEQ/L (5-15); BLOOD UREA NITROGEN 23 mg/dL (7-17); CHLORIDE 99 mmol/L (98-107); Calcium 9.7 mg/dL (8.4-10.2); Carbon Dioxide 30 mmol/L (22-30); Creatinine 1 0.81 mg/dL (0.52-1.04); EST GLOMERULAR FILTRATION RATE > 60.0 ML/MIN; Glucose 96 mg/dL (74-106); MAGNESIUM 1.8 mg/dL (1.6-2.3); NT PRO BNP 50.1 pg/mL (0-900); Potassium 3.8 mmol/L (3.5-5.1); SGOT/AST 24 U/L (14-36); SGPT/ALT 17 U/L (0-35); SODIUM 135 mmol/L (137-145); Total Protein 7.7 g/dL (6.3-8.2)
[2020-04-19 11:41] LABS: Appearance SLIGHTLY CLOUDY (CLEAR); Bilirubin NEGATIVE (NEGATIVE); Blood NEGATIVE Ery/ul (0-5); Epithelial Cells RARE /HPF (FEW); Glucose NEGATIVE (NEGATIVE); Ketones NEGATIVE (NEGATIVE); Leukocyte Esterase TRACE (NEGATIVE); Mucus SLIGHT /HPF (NEGATIVE); Nitrite NEGATIVE (NEGATIVE); Protein,Urine Dip NEGATIVE (Negative); Specific Gravity 1.021 (1.005-1.025); Urobilinogen NEGATIVE mg/dL (0-1)
[2020-04-19] MEDS ORDERED: BABY ASPIRIN 81 MG CHEW PO ONE (12:52)
[2020-04-19] MEDS ORDERED: NITRO-BID 2% UD PACKETS TOP ONE (12:53)
[2020-04-19] MEDS ORDERED: NITRO-BID 2% UD PACKETS ONE (12:56)
[2020-04-19] MEDS ORDERED: BABY ASPIRIN 81 MG CHEW ONE (12:56)
[2020-04-19] MEDS ORDERED: Zofran 4 MG/2 ML VIAL IV PRN (13:43)
[2020-04-19] MEDS ORDERED: Senokot-S Tablet PO PRN (13:43)
[2020-04-19] MEDS ORDERED: TYLENOL 325 MG PO PRN (13:43)
[2020-04-19] MEDS ORDERED: MILK OF MAGNESIA 30 ML PO PRN (13:43)
[2020-04-19] MEDS ORDERED: MAALOX ES 30 ML UNIT DOSE PO PRN (13:43)
[2020-04-19] MEDS ORDERED: ANTIVERT 25 MG PO PRN (15:45)
[2020-04-19] MEDS ORDERED: PREMARIN PO SCH (22:00)
[2020-04-19] MEDS ORDERED: SYNTHROID 75 MCG PO SCH (22:00)
[2020-04-19] MEDS ORDERED: [UNRECOGNIZED DRUG - OTHER] PO SCH (22:00)
[2020-04-19] MEDS ORDERED: DIOVAN 80 MG PO SCH (22:00)
[2020-04-19] MEDS ORDERED: hydroDIURIL 25 MG PO SCH (22:00)
[2020-04-20 05:09] LABS: Risk Ratio 2.8
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
[2020-04-20 14:12] VITALS: BP 115/56; PULSE 70; O2SAT 96
== END 2020-04-20 14:20 | disposition home or self-care (01) ==
LOC: ED 10:04 → MED SURG 13:35
PROVIDERS: ADMIT General Practice; ATTEND General Practice
DX: R07.9 Chest pain, unspecified (principal); R06.02 Shortness of breath; I24.9 Acute ischemic heart disease, unspecified; Z79.899 Other long term (current) drug therapy; E03.9 Hypothyroidism, unspecified; I10 Essential (primary) hypertension
CPT/HCPCS: 36415; 71045; 80053; 80061; 81001; 83721; 83735; 83880; 84484; 85025; 93005; 93041; 93268; 94760; 99285; G0378; A9270-GY

== ENCOUNTER 2020-08-28 07:01 | Emergency (ER) | payer BC ==
[2020-08-28 07:13] VITALS: BP 117/66
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
[2020-08-28 07:42] LABS: Absolute Neutrophil Ct (ANC) 4.72 (1.4-6.9); BASOPHIL % 0.5 % (0.0-0.4); Basophil (Absolute #) 0.04 (0-0.4); Eosinophil % 2.1 % (0.00-5.0); Eosinophil (Absolute #) 0.17 (0-0.5); Hematocrit 40.2 % (35-47); Hemoglobin 13.2 gm/dl (12.0-16.0); Lymphocyte (Absolute #) 2.84 (1.0-4.6); Lymphocytes % 34.4 % (24.0-44.0); Mean Cell Volume 96.2 fl (78-100); Mean Corpuscular Hemoglobin 31.6 pg (26-32); Mean Corpuscular Hgb Concent. 32.8 g/dl (32-36); Mean Platelet Volume 9.7 fl (7.5-11.0); Monocyte (Absolute #) 0.48 (0.0-1.3); Monocytes % 5.8 % (0.0-12.0); Neutrophil % 57.2 % (36.0-66.0); Platelet Count 287 K/mm3 (150-450); Red Blood Count 4.18 M/mm3 (4.1-5.4); Red Cell Distribution Width 12.7 % (11.5-14.0); White Blood Count 8.3 K/mm3 (4.0-10.5)
[2020-08-28 07:56] LABS: ALBUMIN 4.2 g/dL (3.5-5.0); ALKALINE PHOSPHATASE 50 U/L (38-126); ANION GAP 9.3 MEQ/L (5-15); BLOOD UREA NITROGEN 23 mg/dL (7-17); CHLORIDE 103 mmol/L (98-107); CK-Creatinine Phosphokinase 53 U/L (30-135); Calcium 9.5 mg/dL (8.4-10.2); Carbon Dioxide 28 mmol/L (22-30); Creatinine 1 0.94 mg/dL (0.52-1.04); EST GLOMERULAR FILTRATION RATE > 60.0 ML/MIN; Glucose 92 mg/dL (74-106); SGOT/AST 23 U/L (14-36); SGPT/ALT 16 U/L (0-35); SODIUM 136 mmol/L (137-145); Total Protein 7.4 g/dL (6.3-8.2); Uric Acid 4.4 mg/dL (2.6-6.0)
--- NOTE | 2020-08-28 07:58 | XRAY ---
Indication: Pain. No known injury. Comparison: None 2 view left lower leg obtained. No bony, articular, or soft tissue abnormalities.
--- NOTE | 2020-08-28 07:58 | XRAY ---
Indication: Pain. No known injury. Comparison: None 3 nonweight bearing views left foot demonstrates tiny heel spurs. No other bony, articular, or soft tissue abnormalities.
[2020-08-28 08:03] VITALS: PULSE 57
[2020-08-28 08:41] VITALS: O2SAT 99
== END 2020-08-28 08:49 | disposition home or self-care (01) ==
LOC: ED 07:01
DX: M77.52 Other enthesopathy of left foot and ankle (principal)
CPT/HCPCS: 36415; 73590; 73630; 80053; 82550; 84550; 85025; 85379; 85652; 86140; 99284

== ENCOUNTER 2024-03-24 09:25 | Day surgery (SDC) | payer MEDICARE, OTHER ==
--- NOTE | 2024-03-23 22:37 | HP ---
HISTORY OF PRESENT ILLNESS: The patient has right upper quadrant abdominal pain and all the way around, some diaphoresis, some nausea. Cardiac workup negative. It happened in September 1 week after her shoulder fracture. She had an ultrasound that showed cholelithiasis. She is interested in undergoing cholecystectomy. PAST MEDICAL HISTORY: History of mitral valve prolapse, reflux, anxiety, headache, asthma, hypothyroidism, depression, arthritis, restless legs, hypertension. HOME MEDICATIONS: Nitrofurantoin, meclizine, Myrbetriq, gabapentin, celecoxib, pregabalin, montelukast, Synthroid for some hypothyroidism, losartan/hydrochlorothiazide, escitalopram. ALLERGIES: No known drug allergies. PAST SURGICAL HISTORY: Right shoulder surgery, appendectomy, clavicle surgery, hysterectomy in the past. SOCIAL HISTORY: No smoking. No alcohol abuse. FAMILY HISTORY: Heart disease, prostate cancer. REVIEW OF SYSTEMS: Twelve systems reviewed. No chest pain or palpitations. Other systems negative or noncontributory as above and per preadmission questionnaire. PHYSICAL EXAMINATION: GENERAL: Height 5 feet 5 inches. BMI 28.49. No acute distress. HEENT: Sclerae nonicteric. Extraocular movements intact. NECK: No JVD. CHEST: Clear. Equal excursion, nonlabored breathing. CARDIOVASCULAR: Regular rate and rhythm. ABDOMEN: Soft. EXTREMITIES: No cyanosis or edema. NEUROLOGIC: Alert and oriented. Moving extremities symmetrically. PSYCHIATRIC: Appropriate mood and affect. IMPRESSION: Acute exacerbation of chronic cholecystitis, symptomatic cholelithiasis. Recommend cholecystectomy. Shown the gallbladder pamphlet. Risk sheet explained in detail to include, but not limited to, bleeding and infection; risk of bowel injury or perforation; risk of trocar injury; risk of hernia; risk of bile leak, bile duct injury, or retained stone or sludge possibly requiring further procedure either open or ERCP; general risk of anesthesia, DVT, PE, pneumonia; risk of aches and pains, bloating, constipation, and/or loose stools possibly chronic in nature; possibility of no improvement of preop symptoms possibly requiring further workup, endoscopy, or other studies or procedures or referrals. We will proceed with laparoscopic cholecystectomy, possible open, as an outpatient. Otherwise, continue medications for her anxiety, arthritis, heart disease, headaches, restless leg syndrome, reflux, hypertension, hypothyroidism.
[2024-03-24] MEDS: Lactated Ringers 1,000 ML IV SCH (09:40)
[2024-03-24] MEDS: MEFOXIN 2 GM PREMIX** 2 GM/50 ML ML IV SCH (09:40)
[2024-03-24 09:52] VITALS: RESP 16
[2024-03-24] MEDS ORDERED: Sensorcaine 0.25% 10 ML ONE (10:33)
[2024-03-24] MEDS ORDERED: Sodium Chloride 0.9% 1000 ML 1,000 ML ONE (10:33)
[2024-03-24] MEDS ORDERED: SUBLIMAZE 100 MCG/2 ML ONE (10:55)
[2024-03-24] MEDS ORDERED: DIPRIVAN 200 MG/20 ML IV ONE (10:55)
[2024-03-24] MEDS ORDERED: ROCURONIUM BROMIDE IV ONE (10:55)
[2024-03-24] MEDS ORDERED: Quelicin Fliptop 200 MG/10 ML ONE (10:55)
[2024-03-24] MEDS ORDERED: Versed 2 MG/2 ML Injection ONE (10:55)
[2024-03-24] MEDS ORDERED: Lactated Ringers 1,000 ML IV ONE (11:52)
[2024-03-24] MEDS ORDERED: Zofran 4 MG/2 ML VIAL ONE (11:55)
[2024-03-24] MEDS ORDERED: BRIDION 200MG/2ML IV ONE (11:55)
[2024-03-24] MEDS ORDERED: MORPHINE SULFATE 2 MG INJ ONE (12:33)
[2024-03-24] MEDS ORDERED: MORPHINE SULFATE 10 MG/ML ONE (12:46)
[2024-03-24 13:36] VITALS: TEMP 98.9
[2024-03-24 13:52] VITALS: BP 121/74; PULSE 67; O2SAT 93
--- NOTE | 2024-03-26 12:21 | OP ---
SURGERY DATE/TIME: 03/24/2024 [id number] PREOPERATIVE DIAGNOSIS: Acute exacerbation of chronic cholecystitis and symptomatic cholelithiasis. POSTOPERATIVE DIAGNOSIS: Acute exacerbation of chronic cholecystitis and symptomatic cholelithiasis. PROCEDURE: Laparoscopic cholecystectomy. SURGEON: Haim Milian MD ANESTHESIA: General. ESTIMATED BLOOD LOSS: Minimal. INDICATIONS: As noted above. Risks and benefits were explained in detail, not limited to. Consent was obtained. DESCRIPTION OF PROCEDURE AND FINDINGS: The patient was taken to the operating room. General anesthesia was induced. The abdomen was prepped and draped in the usual sterile fashion. After official time-out, no disagreement in planned procedure. Transverse incision made at the supraumbilical area. Fascia grasped and pulled upward. Veress needle inserted. Tested with saline. Pneumoperitoneum accomplished insufflating from an opening pressure of 0-15. A 5 mm bladeless port and camera inserted without difficulty, followed by two 5 mm right upper quadrant ports and 11 mm epigastric port. Gallbladder was grasped, had omental adhesions up to it. They were carefully dissected off the gallbladder and retracted upward. It was dissected posterolateral to anterior fashion with some mild chronic inflammation. Slowly carefully well skeletonized until critical views obtained anterior and posterior. Once this was accomplished, cystic duct/cystic artery clipped x3 and divided in the usual fashion. Gallbladder was slowly and carefully dissected free from its dense attachment to the liver bed staying directly on the gallbladder wall clipping additional oozing side branches off the cystic artery or vein as necessary directly on the gallbladder wall. Just prior to releasing it from its final attachments, one of the graspers tore a small pinhole in the gallbladder. There was no visible stone spillage. There was a little bit of bile spillage. The remainder of the gallbladder was suctioned clear. The area was irrigated with copious amounts of sterile saline and continued dissecting directly on the gallbladder wall clipping additional oozing side branches off the cystic artery or cystic vein as necessary. Just prior to releasing the final attachments to the anterior liver, the liver bed reinspected. The clips were noted to be in place in the cystic duct/cystic artery stumps. No signs of any active bleeding or bile leakage. [place] there was no benefit from drain placement. Gallbladder released from final attachments, placed in the provided sac, and pulled up and out the epigastrium and then passed off. The fascial defect closed with puncture closure device and #1 Vicryl. Copious amount of irrigation accomplished lateral to the liver and subhepatic space irrigated clear. Clips were noted to be in place on cystic duct/cystic artery stumps. It was felt there was no benefit to drain placement. Pneumoperitoneum decompressed and was irrigated out. Skin incision closed with 4-0 Vicryl. Steri-Strips and sterile dressing applied. The patient tolerated the procedure well. There were no immediate complications. Findings were discussed with the family out in the waiting area. She is to be transferred to [facility] in stable condition.
== END 2024-03-24 14:12 | disposition home or self-care (01) ==
LOC: SDC 09:25
PROVIDERS: ATTEND Surgery
DX: K80.10 Calculus of gallbladder with chronic cholecystitis without obstruction (principal)
CPT/HCPCS: J0330; J0694; J2250; J2270; J2405; J2704; J3010